=== PATIENT | male | born 1965 | race Two or more races ===

== ENCOUNTER 2018-11-16 18:18 | Inpatient (IN) | payer OTHER | END 2018-11-24 17:53 | disposition short-term general hospital (02) | LOC: JER 18:18 → J4S 11-18 18:51 → JERBED 20:27 → J7W 23:42 → J2W 11-17 20:58 ==

== ENCOUNTER 2018-11-24 17:23 | Inpatient (IN) | payer OTHER ==
[2018-11-24 18:02] VITALS: BMI 20.3
[2018-11-24] MEDS ORDERED: guaiFENesin 200 MG/10 ML 10 ML UNIT-DOSE CUPS PO PRN (18:49)
[2018-11-24] MEDS ORDERED: MAG HYDROX/AL HYDROX/SIMETH 30 ML UNIT-DOSE CUP PO PRN (18:49)
[2018-11-24] MEDS ORDERED: MENTHOL/PHENOL 1 EACH UD MM PRN (18:49)
[2018-11-24] MEDS ORDERED: P-EPHED 60MG/TRIPROLIDI 2.5MG TABLET PO PRN (18:49)
--- NOTE | 2018-11-24 18:49 | HP ---
CIWA Score - Admission Criteria OASAS Guidelines: Admission for Medically Managed Detox: Requires at least one of the followin. CIWA greater than 12 2. Seizures within the past 24 hours 3. Delirium tremens within the past 24 hours 4. Hallucinations within the past 24 hours 5. Acute intervention needed for co occurring medical disorder 6. Acute intervention needed for co occurring psychiatric disorder 7. Severe withdrawal that cannot be handled at a lower level of care (continued vomiting, continued diarrhea, abnormal vital signs) requiring intravenous medication and/or fluids 8. Admission ROS [facility] Chief Complaint: alcohol rehabilitation Allergies/Adverse Reactions: Allergies Allergy/AdvReac Type Severity Reaction Status Date / Time Penicillins Allergy Mild Rash Verified 11/24/18 17:45 History of Present Illness: Patient is 53 yo male with hx of alcohol dependence is here for alcohol rehabilitation after he was treated at [facility] 11/16/18 - 11/24/18 for alcohol withdrawal, chest pain, and acute abdominal pain, during the his stay had delirium tremens and was dx with abnormal Liver function test suspected liver cirrhosis and referred to out patient GI. Patient is linked to OTP: [facility] on methadone 100 mg last medicated 11/24/18 during his stay at [facility]. PMHX: Hyperammonemia, Pancytopenia seizure d/o (last seizure 11/10/18). Psych: schizophrenia, and insomnia. Denies SI/HI Exam Limitations: No Limitations - Ebola screening Have you traveled outside of the country in the last 21 days: No (N) Have you had contact with anyone from an Ebola affected area: No Do you have a fever: No - Review of Systems Constitutional: Chills, Diaphoresis, Changes in sleep EENT: reports: No Symptoms Reported Respiratory: reports: No Symptoms reported Cardiac: reports: No Symptoms Reported GI: reports: Other (abdominal pain x 3 weeks , but pain improving daily) Musculoskeletal: reports: No Symptoms Reported Integumentary: reports: No Symptoms Reported Neuro: reports: No Symptoms reported Endocrine: reports: No Symptoms Reported Hematology: reports: No Symptoms Reported Psychiatric: reports: No Sypmtoms Reported, Orientated x3, Anxious Other Systems: Reviewed and Negative Patient History - Patient Medical History Hx Anemia: Yes Hx Asthma: No Hx Chronic Obstructive Pulmonary Disease (COPD): No Hx Cancer: No Hx Cardiac Disorders: No Hx Congestive Heart Failure: No Hx Hypertension: No Hx Hypercholesterolemia: No Hx Pacemaker: No HX Cerebrovascular Accident: No Hx Seizures: Yes Hx Dementia: No Hx Diabetes: No Hx Gastrointestinal Disorders: No Hx Liver Disease: No Hx Genitourinary Disorders: No Hx Sexually Transmitted Disorders: No Hx Renal Disease (ESRD): No Hx Thyroid Disease: No Hx Human Immunodeficiency Virus (HIV): No Hx Hepatitis C: No Hx Depression: Yes Hx Suicide Attempt: No Hx Bipolar Disorder: No Hx Schizophrenia: Yes - Patient Surgical History Past Surgical History: Yes Hx Neurologic Surgery: No Hx Cataract Extraction: No Hx Cardiac Surgery: No Hx Lung Surgery: No Hx Breast Surgery: No Hx Breast Biopsy: No Hx Abdominal Surgery: Yes Hx Appendectomy: No Hx Cholecystectomy: No Hx Genitourinary Surgery: No Hx Section: No Hx Orthopedic Surgery: No Hx Hysterectomy: No - Smoking Cessation Smoking history: Former smoker Have you smoked in the past 12 months: No Aproximately how many cigarettes per day: 2 If you are a former smoker, when did you quit?: August 2018 Hx Chewing Tobacco Use: No Initiated information on smoking cessation: Yes 'Breaking Loose' booklet given: 11/24/18 - Substance & Tx. History Hx Alcohol Use: Yes Hx Substance Use: Yes Substance Use Type: Alcohol Hx Substance Use Treatment: Yes - Substances abused Alcohol Substance route: Oral Frequency: Daily Amount used: 1/5 bottle vodka, 9 cans of beer Age of first use: 22 Date of last use: 11/16/18 Family Disease History - Family Disease History Family Disease History: Other: Father (: MVA), Mother (: 70's: Brain tumor), Brother (1, healthy), Sister (1, healthy), Son (1, killed) Admission Physical Exam S - Vital Signs Vital Signs: Vital Signs - 24 hr 11/24/18 17:55 Temperature 97.2 F L Pulse Rate 74 Respiratory 16 Rate Blood Pressure 97/64 - Physical General Appearance: Yes: Appropriately Dressed, Thin, Irritable, Anxious HEENTM: Yes: EOMI, Hearing grossly Normal, Normal ENT Inspection, Normocephalic , Normal Voice, CONRADO, Pharynx Normal, Tm's normal, Other (poor dentition) Respiratory: Yes: Chest Non-Tender, Lungs Clear, Normal Breath Sounds, No Respiratory Distress, No Accessory Muscle Use Neck: Yes: Within Normal Limits Breast: Yes: Breast Exam Deferred Cardiology: Yes: Regular Rhythm, Regular Rate Abdominal: Yes: Normal Bowel Sounds, Non Tender, Soft, Protuberent Genitourinary: Yes: Within Normal Limits Back: Yes: Normal Inspection Musculoskeletal: Yes: full range of Motion, Gait Steady, Pelvis Stable Extremities: Yes: Normal Capillary Refill, Normal Inspection, Normal Range of Motion, Non-Tender Neurological: Yes: spray machine tender II-XII NML intact, Fully Oriented, Alert, Motor Strength 5/5, Normal Response, Depressed Affect Integumentary: Yes: Normal Color, Dry, Warm, Other (abrasion left knee (no infection)) Lymphatic: Yes: Within Normal Limits - Diagnostic (1) Alcohol dependence Current Visit: Yes Status: Acute (2) Hyperammonemia Current Visit: Yes Status: Acute (3) Opioid dependence on agonist therapy Current Visit: Yes Status: Chronic Comment: OTP: [facility] on 100 mg last dose 11/24/18 (4) Seizure disorder Current Visit: Yes Status: Chronic (5) History of delirium Current Visit: Yes Status: Acute (6) Pancytopenia Current Visit: Yes Status: Chronic Breathalyzer - Breathalyzer Breathalyzer: 0 Urine Drug Screen - Test Device Lot number: [id number] Expiration date: 08/16/20 - Control Is test valid?: Yes - Results Drug screen NEGATIVE: No Urine drug screen results: MTD-Methadone, BZO-Benzodiazepines Inpatient Rehab Admission - Rehab Decision to Admit Inpatient rehab admission?: Yes - Initial Determination Are CD services needed?: Yes Free of communicable disease: Yes Not in need of hospitalization: Yes - Rehab Admission Criteria Previous failed treatment: Yes Poor recovery environment: Yes Comorbidities: Yes Lacks judgement: Yes Patient is meeting Inpatient Rehab admission criteria:: Yes
[2018-11-24] MEDS: LACTULOSE 20 GM/30 ML UDC (FOR ORAL USE ONLY) PO SCH (21:25)
[2018-11-24] MEDS: GABAPENTIN 100 MG CAPSULE (FP) PO SCH (21:25)
[2018-11-24] MEDS: THIAMINE HCL 100 MG TABLET (FP) PO SCH (21:25)
[2018-11-24] MEDS: PHENYTOIN NA EXTENDED 100 MG CAPSULE (FP) PO SCH (21:25)
[2018-11-24] MEDS ORDERED: diphenhydrAMINE HCL 25 MG CAPSULE (FP) PO ONE (22:00)
[2018-11-24] MEDS ORDERED: MELATONIN 5 MG TABLETS PO PRN (22:00)
[2018-11-25] MEDS ORDERED: METHADONE HCL 10 MG TABLET ONE (05:23)
[2018-11-25] MEDS ORDERED: METHADONE HCL 40 MG DISPERSABLE TABLET ONE (05:23)
[2018-11-25] MEDS ORDERED: METHADONE HCL 40 MG DISPERSABLE TABLET PO SCH (06:00)
[2018-11-25] MEDS: METHADONE 80 MG, METHADONE 20 MG PO SCH (06:03)
[2018-11-25] MEDS: GABAPENTIN 100 MG CAPSULE (FP) PO SCH ×3 (06:03→21:15)
[2018-11-25] MEDS: PHENYTOIN NA EXTENDED 100 MG CAPSULE (FP) PO SCH ×3 (06:03→21:16)
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
[2018-11-25] MEDS: PRENATAL VITAMINS W/ FOLIC ACID TABLET (FP) PO SCH (09:56)
[2018-11-25] MEDS: LACTULOSE 20 GM/30 ML UDC (FOR ORAL USE ONLY) PO SCH ×3 (09:56→22:44)
[2018-11-25] MEDS: NADOLOL 20 MG TABLET (FP) PO SCH (10:48)
[2018-11-25] MEDS: risperiDONE 1 MG TABLET (FP) PO SCH ×2 (10:52→21:15)
[2018-11-25 12:35] LABS: ALBUMIN 3.4 g/dl (3.4-5.0); BILIRUBIN,TOTAL 1.5 mg/dL (0.2-1); BLOOD UREA NITROGEN 21.5 mg/dL (7-18); CALCIUM 8.6 mg/dL (8.5-10.1); CREATININE 0.8 mg/dL (0.55-1.3); POTASSIUM 4.2 mmol/L (3.5-5.1); TOT PROT 8.3 g/dl (6.4-8.2)
[2018-11-25 13:15] LABS: HEMATOCRIT 33.7 % (35.4-49); HEMOGLOBIN 11.2 GM/dL (11.7-16.9); MCH 34.6 pg (25.7-33.7); MCHC 33.2 g/dl (32.0-35.9); MEAN CELL VOLUME 104.3 fl (80-96); MEAN PLT VOLUME 8.8 fl (7.5-11.1); PLATELET COUNT 179 K/MM3 (134-434); RBC 3.23 M/mm3 (4.00-5.60); RDW 16.8 % (11.9-15.9); WHITE BLOOD COUNT 5.5 K/mm3 (4.0-10.0)
--- NOTE | 2018-11-25 14:00 | PN ---
[facility] Progress Note Note: Pt is a 53 y/o male with a hx of alcohol dependence admitted from [facility] to rehab on 11/24/18. Pt was referred to [facility] from [facility]. Pt was hospitalized at [facility] from 11/16/18 to 11/24/18 for alcohol withdrawals, acute abdomen and chest pain. Pt was reported with episode of delirium tremens and dx with abnormal Liver function test/suspected liver cirrhosis and was referred to GI clinic. Pt still c/o both sides abdominal pain especially on the right upper abdomen. Pt reports he has not urinated as much as he is drinking fluids and has not moved his bowel since today. Last urinated last night about 3 a.m here and [facility] Pt reports it happened 2-3 weeks ago and went to [facility] and was told "my kidneys are messing up ". Pt has a PMHX of Hyperammonemia, pancytopenia, seizure d/o(last episode was ). Psych:Schizophrenia and insomnia. Pt denies S/H/I. Vital Signs - 24 hr 11/24/18 11/24/18 11/25/18 17:55 19:43 00:30 Temperature 97.2 F L 98.2 F Pulse Rate 74 70 Respiratory 16 18 16 Rate Blood Pressure 97/64 112/79 11/25/18 11/25/18 11/25/18 03:30 07:14 09:47 Temperature 97.4 F L Pulse Rate 75 75 Respiratory 18 18 Rate Blood Pressure 115/70 89/57 L Laboratory Tests 11/25/18 11/25/18 11/25/18 08:45 08:45 08:45 WBC 5.5 RBC 3.23 L Hgb 11.2 L Hct 33.7 L MCV 104.3 H MCH 34.6 H MCHC 33.2 RDW 16.8 H Plt Count 179 D MPV 8.8 Sodium 137 Potassium 4.2 Chloride 106 Carbon Dioxide 25 Anion Gap 6 L BUN 21.5 H Creatinine 0.8 Est GFR (CKD-EPI)AfAm 116.56 Est GFR (CKD-EPI)NonAf 100.57 Random Glucose 81 Calcium 8.6 Total Bilirubin 1.5 H AST 69 H ALT 49 Alkaline Phosphatase 281 H Ammonia Total Protein 8.3 H Albumin 3.4 Phenytoin RPR Titer Nonreactive 11/25/18 11/25/18 08:45 08:45 WBC RBC Hgb Hct MCV MCH MCHC RDW Plt Count MPV Sodium Potassium Chloride Carbon Dioxide Anion Gap BUN Creatinine Est GFR (CKD-EPI)AfAm Est GFR (CKD-EPI)NonAf Random Glucose Calcium Total Bilirubin AST ALT Alkaline Phosphatase Ammonia 72.10 H Total Protein Albumin Phenytoin 4.7 L RPR Titer Alert o x 3 Heent:Normocephalic, eomi,charbel; sclera icteric Cardiac:s1 s2 rrr Lungs:cta,roseann. Abdomen:soft, sl. distended, tender to touch, generalized and especially right side. Skin:slightly jaundice Extermities:No edema or cyanosis. A:Abdominal pain c/o dysuria Plan:Spoke with Resident Dr. Clarke for further medical decision making. Meanwhile d/w pt will provide urinal for monitoring urine output. MOM for constipation or may increase lactulose to tid.
[2018-11-25] MEDS ORDERED: COLLOIDAL OATMEAL 1 BAR EACH TP PRN (14:25)
--- NOTE | 2018-11-25 16:28 | PN ---
[facility] Progress Note Note: Medicine consult: decreased urinary frequency 53 y/o M with PMH cirrhosis, hx seizure disorder (on phenytoin), who initially presented for alcohol detox. Was subsequently sent to [facility] for hyperammonemia, AMS, abdominal pain, chest pain. Was evaluated by GI and cardio while there. CTAP was done which revealed colonic distension, cirrhosis, nonspecific splenic lesion. Pt's encephalopathy was managed with lactulose, and diet was advanced gradually. Pt was also seen by cardio, trops (-) x 3, ECHO revealed Normal LV and RV size and fxn, mild TR, AR, tr MR. His alcohol detox was managed w/ ativan. Pt w/ hx DT's, was sent back to for rehab. Today pt c/o decreased urinary frequency and small void volume. This is new for pt. Endorses constipation during this time, as he had 1 BM 2 days ago. Currently also w/ RUQ, RLQ abdominal discomfort. Otherwise, denies REED, fever, chills, SOB, chest pain or pressure. Vitals 11/25/18 11/25/18 07:14 09:47 Temperature 97.4 F L Pulse Rate 75 Respiratory 18 Rate Blood Pressure 89/57 L Exam general: resting , in NAD heent: NCAT, with nare deviation pulm: cta b/l card: s1, s2, rrr. no r/m/g abd: +TTP RUQ RLQ. +hepatomegaly. normoactive bowel sounds LE: without edema Laboratory Tests 11/22/18 11/25/18 11/25/18 07:11 08:45 08:45 Sodium 137 Potassium 4.2 Chloride 106 BUN 21.5 H Creatinine 0.8 AST 69 H ALT 49 Ammonia RPR Titer Nonreactive Hep A IgM Ab Confirm Negative Hepatitis A Ab Total Positive H Hep Bs Antigen Negative Hep Bs Antibody Reactive Hep B Core Total Ab Negative Hep B Core IgM Ab Negative Hepatitis Be Antibody Negative Hepatitis Be Antigen Negative Hepatitis C Genotype Pending 11/25/18 08:45 ALT Ammonia 72.10 H RPR Titer 53 y/o M with PMH cirrhosis, hx seizure disorder (on phenytoin), who initially presented for alcohol detox. Pt currently in rehab from alcohol. Consulted for decreased urinary frequency and void volume. #Decreased urinary freq, void volume -likely 2/2 constipation. pt has not had adequate BM -will increase lactulose to 30mg PO q6h OLMAN ; titrate to 3-4 BMs daily -recommend bladder scan, straight cath if avail #hepatic encephalopathy - resolved -w/ increased ammonia, however without altered sensorium -have increased lactulose to 30mg PO q6h #cirrhosis likely 2/2 alcohol -expected to have low BP, given portal htn -c/t monitor; will need outpt GI f/u -will order hep C serology; genotype was ordered previously -c/w nadolol for variceal ppx #pancreatic lesion seen on CTAP -will need outpt f/u w GI #seizure d/o -c/w dilantin -sz precautions Kristie Clarke, MG PGY-3 Medicine team
[2018-11-25] MEDS: SELENIUM SULFIDE 2.5% LOTION 4 OZ. TP SCH (16:52)
[2018-11-25] MEDS: MINERAL OIL/PETROLAT/WATER TOPICAL CREAM 113 GM JAR TP SCH (16:53)
[2018-11-25] MEDS: THIAMINE HCL 100 MG TABLET (FP) PO SCH (21:16)
[2018-11-25] MEDS: MELATONIN 5 MG TABLETS PO PRN (21:16)
[2018-11-26] MEDS: LACTULOSE 20 GM/30 ML UDC (FOR ORAL USE ONLY) PO SCH ×4 (04:40→21:49)
[2018-11-26] MEDS ORDERED: METHADONE HCL 40 MG DISPERSABLE TABLET ONE (05:53)
[2018-11-26] MEDS ORDERED: METHADONE HCL 10 MG TABLET ONE (05:53)
[2018-11-26] MEDS: PHENYTOIN NA EXTENDED 100 MG CAPSULE (FP) PO SCH ×3 (06:14→21:24)
[2018-11-26] MEDS: GABAPENTIN 100 MG CAPSULE (FP) PO SCH ×3 (06:15→21:24)
[2018-11-26] MEDS: METHADONE 80 MG, METHADONE 20 MG PO SCH (06:35)
[2018-11-26] MEDS: PRENATAL VITAMINS W/ FOLIC ACID TABLET (FP) PO SCH (11:07)
[2018-11-26] MEDS: NADOLOL 20 MG TABLET (FP) PO SCH (11:10)
[2018-11-26] MEDS: risperiDONE 1 MG TABLET (FP) PO SCH ×2 (11:11→21:24)
[2018-11-26] MEDS: MINERAL OIL/PETROLAT/WATER TOPICAL CREAM 113 GM JAR TP SCH (11:11)
[2018-11-26] MEDS: SELENIUM SULFIDE 2.5% LOTION 4 OZ. TP SCH (11:13)
[2018-11-26 17:54] LABS: EPI CELLS 4.6 /HPF (0-5/HPF); HYALINE CASTS 16 /lpf (0-8); PH,URINE 5.5 (5.0-8.0); URINE APPEARANCE CLEAR; URINE BILIRUBIN 1+ (NEGATIVE); URINE COLOR DK YELLOW; URINE GLUCOSE (UA) NEGATIVE (NEGATIVE); URINE KETONE TRACE (NEGATIVE); URINE LEUK ESTERASE 1+ (NEGATIVE); URINE NITRITE NEGATIVE (NEGATIVE); URINE PROTEIN NEGATIVE (NEGATIVE); URINE RBC 2 /hpf (0-4); URINE UROBILINOGEN 0.2 mg/dL (0.2-1.0); URINE WBC 22 /hpf (0-5)
[2018-11-26] MEDS: MELATONIN 5 MG TABLETS PO PRN (21:24)
[2018-11-26] MEDS: THIAMINE HCL 100 MG TABLET (FP) PO SCH (21:24)
[2018-11-27 03:47] LABS: URINE CRYSTALS CA OXALATE /hpf
[2018-11-27] MEDS: LACTULOSE 20 GM/30 ML UDC (FOR ORAL USE ONLY) PO SCH ×4 (04:04→22:48)
[2018-11-27] MEDS ORDERED: METHADONE HCL 10 MG TABLET ONE (05:41)
[2018-11-27] MEDS ORDERED: METHADONE HCL 40 MG DISPERSABLE TABLET ONE (05:41)
[2018-11-27] MEDS: GABAPENTIN 100 MG CAPSULE (FP) PO SCH ×3 (06:08→21:18)
[2018-11-27] MEDS: PHENYTOIN NA EXTENDED 100 MG CAPSULE (FP) PO SCH ×3 (06:08→21:18)
[2018-11-27] MEDS: METHADONE 80 MG, METHADONE 20 MG PO SCH (06:08)
[2018-11-27] MEDS: MINERAL OIL/PETROLAT/WATER TOPICAL CREAM 113 GM JAR TP SCH (10:10)
[2018-11-27] MEDS: risperiDONE 1 MG TABLET (FP) PO SCH ×2 (10:10→21:18)
[2018-11-27] MEDS: PRENATAL VITAMINS W/ FOLIC ACID TABLET (FP) PO SCH (10:10)
[2018-11-27] MEDS: NADOLOL 20 MG TABLET (FP) PO SCH (10:10)
[2018-11-27] MEDS: SELENIUM SULFIDE 2.5% LOTION 4 OZ. TP SCH (10:13)
[2018-11-27] MEDS: THIAMINE HCL 100 MG TABLET (FP) PO SCH (21:18)
[2018-11-27] MEDS: MELATONIN 5 MG TABLETS PO PRN (21:39)
[2018-11-28] MEDS ORDERED: METHADONE HCL 10 MG TABLET ONE (02:51)
[2018-11-28] MEDS ORDERED: METHADONE HCL 40 MG DISPERSABLE TABLET ONE (02:51)
[2018-11-28] MEDS: METHADONE 80 MG, METHADONE 20 MG PO SCH (06:02)
[2018-11-28] MEDS: PHENYTOIN NA EXTENDED 100 MG CAPSULE (FP) PO SCH ×3 (06:03→21:25)
[2018-11-28] MEDS: GABAPENTIN 100 MG CAPSULE (FP) PO SCH ×3 (06:03→21:25)
[2018-11-28] MEDS: LACTULOSE 20 GM/30 ML UDC (FOR ORAL USE ONLY) PO SCH ×4 (06:04→22:01)
--- NOTE | 2018-11-28 09:19 | PN ---
Teaching Attending Note Name of Resident: Kristie Clarke ATTENDING PHYSICIAN STATEMENT I saw and evaluated the patient. I reviewed the resident's note and discussed the case with the resident. I agree with the resident's findings and plan as documented. SUBJECTIVE: Patient was seen for elevated LFT's No complaints OBJECTIVE: Patient was advised of LFT's consistent with alcohol use ASSESSMENT AND PLAN: Other causes to be identified and patient must follow up with GI upon discharge.
[2018-11-28] MEDS: PRENATAL VITAMINS W/ FOLIC ACID TABLET (FP) PO SCH (10:22)
[2018-11-28] MEDS: NADOLOL 20 MG TABLET (FP) PO SCH (10:22)
[2018-11-28] MEDS: risperiDONE 1 MG TABLET (FP) PO SCH ×2 (10:22→21:25)
[2018-11-28] MEDS: SELENIUM SULFIDE 2.5% LOTION 4 OZ. TP SCH (10:23)
[2018-11-28] MEDS: MINERAL OIL/PETROLAT/WATER TOPICAL CREAM 113 GM JAR TP SCH (10:23)
[2018-11-28] MEDS: THIAMINE HCL 100 MG TABLET (FP) PO SCH (21:25)
[2018-11-28] MEDS: MELATONIN 5 MG TABLETS PO PRN (21:26)
[2018-11-29] MEDS ORDERED: METHADONE HCL 10 MG TABLET ONE (05:40)
[2018-11-29] MEDS ORDERED: METHADONE HCL 40 MG DISPERSABLE TABLET ONE (05:41)
[2018-11-29] MEDS: METHADONE 80 MG, METHADONE 20 MG PO SCH (06:04)
[2018-11-29] MEDS: GABAPENTIN 100 MG CAPSULE (FP) PO SCH ×3 (07:08→21:42)
[2018-11-29] MEDS: PHENYTOIN NA EXTENDED 100 MG CAPSULE (FP) PO SCH ×3 (07:09→21:42)
[2018-11-29] MEDS: LACTULOSE 20 GM/30 ML UDC (FOR ORAL USE ONLY) PO SCH ×4 (07:09→21:42)
[2018-11-29] MEDS: NADOLOL 20 MG TABLET (FP) PO SCH (10:07)
[2018-11-29] MEDS: SELENIUM SULFIDE 2.5% LOTION 4 OZ. TP SCH (10:07)
[2018-11-29] MEDS: risperiDONE 1 MG TABLET (FP) PO SCH ×2 (10:07→21:41)
[2018-11-29] MEDS: PRENATAL VITAMINS W/ FOLIC ACID TABLET (FP) PO SCH (10:07)
[2018-11-29] MEDS: MINERAL OIL/PETROLAT/WATER TOPICAL CREAM 113 GM JAR TP SCH (10:07)
[2018-11-29] MEDS: MELATONIN 5 MG TABLETS PO PRN (21:42)
[2018-11-29] MEDS: THIAMINE HCL 100 MG TABLET (FP) PO SCH (21:42)
[2018-11-29 23:49] LABS: URINE APPEARANCE CLEAR; URINE BILIRUBIN NEGATIVE (NEGATIVE); URINE COLOR YELLOW; URINE GLUCOSE (UA) NEGATIVE (NEGATIVE); URINE KETONE NEGATIVE (NEGATIVE); URINE LEUK ESTERASE NEGATIVE (NEGATIVE); URINE NITRITE NEGATIVE (NEGATIVE); URINE PROTEIN NEGATIVE (NEGATIVE); URINE UROBILINOGEN 0.2 mg/dL (0.2-1.0)
[2018-11-30] MEDS ORDERED: METHADONE HCL 10 MG TABLET ONE (05:10)
[2018-11-30] MEDS ORDERED: METHADONE HCL 40 MG DISPERSABLE TABLET ONE (05:10)
[2018-11-30] MEDS: METHADONE 80 MG, METHADONE 20 MG PO SCH (05:36)
[2018-11-30] MEDS: LACTULOSE 20 GM/30 ML UDC (FOR ORAL USE ONLY) PO SCH ×3 (05:36→21:20)
[2018-11-30] MEDS: PHENYTOIN NA EXTENDED 100 MG CAPSULE (FP) PO SCH ×3 (06:58→21:20)
[2018-11-30] MEDS: GABAPENTIN 100 MG CAPSULE (FP) PO SCH ×3 (06:58→21:20)
[2018-11-30] MEDS: NADOLOL 20 MG TABLET (FP) PO SCH (10:01)
[2018-11-30] MEDS: risperiDONE 1 MG TABLET (FP) PO SCH ×2 (10:01→21:19)
[2018-11-30] MEDS: MINERAL OIL/PETROLAT/WATER TOPICAL CREAM 113 GM JAR TP SCH (10:02)
[2018-11-30] MEDS: SELENIUM SULFIDE 2.5% LOTION 4 OZ. TP SCH (10:02)
[2018-11-30] MEDS: PRENATAL VITAMINS W/ FOLIC ACID TABLET (FP) PO SCH (10:02)
[2018-11-30 12:32] LABS: ALBUMIN 3.1 g/dl (3.4-5.0); BILIRUBIN,TOTAL 0.7 mg/dL (0.2-1); BLOOD UREA NITROGEN 16.3 mg/dL (7-18); CALCIUM 8.4 mg/dL (8.5-10.1); CREATININE 0.8 mg/dL (0.55-1.3); POTASSIUM 4.1 mmol/L (3.5-5.1); TOT PROT 7.2 g/dl (6.4-8.2)
[2018-11-30 12:42] LABS: HEMATOCRIT 30.6 % (35.4-49); HEMOGLOBIN 10.2 GM/dL (11.7-16.9); MCH 34.5 pg (25.7-33.7); MCHC 33.2 g/dl (32.0-35.9); MEAN CELL VOLUME 103.9 fl (80-96); MEAN PLT VOLUME 9.1 fl (7.5-11.1); PLATELET COUNT 186 K/MM3 (134-434); RBC 2.94 M/mm3 (4.00-5.60); RDW 16.6 % (11.9-15.9); WHITE BLOOD COUNT 5.8 K/mm3 (4.0-10.0)
--- NOTE | 2018-11-30 12:54 | PN ---
[facility] Progress Note Note: Repeat Lab Review: Pt is alert o x 3 oob ambulating with steady gait. Vital Signs - 24 hr 11/30/18 11/30/18 11/30/18 00:30 03:30 06:30 Temperature 98.3 F Pulse Rate 76 Respiratory 20 18 18 Rate Blood Pressure 127/67 Laboratory Tests 11/25/18 11/25/18 11/25/18 08:45 08:45 08:45 WBC 5.5 RBC 3.23 L Hgb 11.2 L Hct 33.7 L MCV 104.3 H MCH 34.6 H MCHC 33.2 RDW 16.8 H Plt Count 179 D MPV 8.8 Sodium 137 Potassium 4.2 Chloride 106 Carbon Dioxide 25 Anion Gap 6 L BUN 21.5 H Creatinine 0.8 Est GFR (CKD-EPI)AfAm 116.56 Est GFR (CKD-EPI)NonAf 100.57 Random Glucose 81 Calcium 8.6 Total Bilirubin 1.5 H AST 69 H ALT 49 Alkaline Phosphatase 281 H Ammonia Total Protein 8.3 H Albumin 3.4 Urine Color Urine Appearance Urine pH Ur Specific [place] Urine Protein Urine Glucose (UA) Urine Ketones Urine Blood Urine Nitrite Urine Bilirubin Urine Urobilinogen Ur Leukocyte Esterase Urine WBC (Auto) Urine RBC (Auto) Urine Casts (Auto) U Epithel Cells (Auto) Urine Crystals (Auto) Urine Bacteria (Auto) Phenytoin RPR Titer Nonreactive 11/25/18 11/25/18 11/26/18 08:45 08:45 Unknown WBC RBC Hgb Hct MCV MCH MCHC RDW Plt Count MPV Sodium Potassium Chloride Carbon Dioxide Anion Gap BUN Creatinine Est GFR (CKD-EPI)AfAm Est GFR (CKD-EPI)NonAf Random Glucose Calcium Total Bilirubin AST ALT Alkaline Phosphatase Ammonia 72.10 H Total Protein Albumin Urine Color Dk yellow Urine Appearance Clear Urine pH 5.5 Ur Specific [place] 1.019 Urine Protein Negative Urine Glucose (UA) Negative Urine Ketones Trace H Urine Blood Negative Urine Nitrite Negative Urine Bilirubin 1+ H Urine Urobilinogen 0.2 Ur Leukocyte Esterase 1+ H Urine WBC (Auto) 22 Urine RBC (Auto) 2 Urine Casts (Auto) 16 U Epithel Cells (Auto) 4.6 Urine Crystals (Auto) Ca oxalate Urine Bacteria (Auto) 11.0 Phenytoin 4.7 L RPR Titer 11/29/18 11/30/18 11/30/18 14:40 08:35 08:35 WBC RBC Hgb Hct MCV MCH MCHC RDW Plt Count MPV Sodium 140 Potassium 4.1 Chloride 110 H Carbon Dioxide 24 Anion Gap 6 L BUN 16.3 Creatinine 0.8 Est GFR (CKD-EPI)AfAm 116.56 Est GFR (CKD-EPI)NonAf 100.57 Random Glucose 126 H Calcium 8.4 L Total Bilirubin 0.7 AST 58 H ALT 56 Alkaline Phosphatase 232 H Ammonia 73.20 H Total Protein 7.2 Albumin 3.1 L Urine Color Yellow Urine Appearance Clear Urine pH 6.0 Ur Specific [place] 1.018 Urine Protein Negative Urine Glucose (UA) Negative Urine Ketones Negative Urine Blood Negative Urine Nitrite Negative Urine Bilirubin Negative Urine Urobilinogen 0.2 Ur Leukocyte Esterase Negative Urine WBC (Auto) Urine RBC (Auto) Urine Casts (Auto) U Epithel Cells (Auto) Urine Crystals (Auto) Urine Bacteria (Auto) Phenytoin RPR Titer 11/30/18 08:35 WBC RBC Hgb Hct MCV MCH MCHC RDW Plt Count MPV Sodium Potassium Chloride Carbon Dioxide Anion Gap BUN Creatinine Est GFR (CKD-EPI)AfAm Est GFR (CKD-EPI)NonAf Random Glucose Calcium Total Bilirubin AST ALT Alkaline Phosphatase Ammonia Total Protein Albumin Urine Color Urine Appearance Urine pH Ur Specific [place] Urine Protein Urine Glucose (UA) Urine Ketones Urine Blood Urine Nitrite Urine Bilirubin Urine Urobilinogen Ur Leukocyte Esterase Urine WBC (Auto) Urine RBC (Auto) Urine Casts (Auto) U Epithel Cells (Auto) Urine Crystals (Auto) Urine Bacteria (Auto) Phenytoin 3.3 L RPR Titer Dilantin level 3.3 today, decreased from 4.7 on 11/25/18. asymptomatic A/P: Hx Seizures Give Dilantin 200 mg po x1 now.
[2018-11-30] MEDS ORDERED: PHENYTOIN NA EXTENDED 100 MG CAPSULE (FP) PO ONE (13:15)
--- NOTE | 2018-11-30 13:42 | PN ---
[facility] Progress Note Note: Patient is not responding to Melatonin 10 mg/hs. Will switch to Belsomra 10 mg/ hs prn for insomnia
[2018-11-30] MEDS: THIAMINE HCL 100 MG TABLET (FP) PO SCH (21:20)
[2018-11-30] MEDS ORDERED: SUVOREXANT 10 MG TABLET PO PRN (22:00)
[2018-12-01] MEDS ORDERED: METHADONE HCL 10 MG TABLET ONE (05:41)
[2018-12-01] MEDS ORDERED: METHADONE HCL 40 MG DISPERSABLE TABLET ONE (05:41)
[2018-12-01] MEDS ORDERED: METHADONE HCL 10 MG TABLET PO SCH (06:00)
[2018-12-01] MEDS: METHADONE 80 MG, METHADONE 20 MG PO SCH (06:09)
[2018-12-01] MEDS: PHENYTOIN NA EXTENDED 100 MG CAPSULE (FP) PO SCH ×3 (06:58→21:18)
[2018-12-01] MEDS: LACTULOSE 20 GM/30 ML UDC (FOR ORAL USE ONLY) PO SCH ×3 (06:58→21:18)
[2018-12-01] MEDS: GABAPENTIN 100 MG CAPSULE (FP) PO SCH ×3 (07:58→21:18)
[2018-12-01] MEDS: SELENIUM SULFIDE 2.5% LOTION 4 OZ. TP SCH (10:54)
[2018-12-01] MEDS: MINERAL OIL/PETROLAT/WATER TOPICAL CREAM 113 GM JAR TP SCH (10:54)
[2018-12-01] MEDS: risperiDONE 1 MG TABLET (FP) PO SCH ×2 (10:54→21:18)
[2018-12-01] MEDS: PRENATAL VITAMINS W/ FOLIC ACID TABLET (FP) PO SCH (10:54)
[2018-12-01] MEDS: NADOLOL 20 MG TABLET (FP) PO SCH (10:54)
--- NOTE | 2018-12-01 13:49 | PN ---
S Progress Note Note: Patient continues to complain sleeping poorly despita taking Belsomra 10 mg/hs last night. Requests that doage of medication be raised. Belsomra 15 mg/hs is now ordered for patient
[2018-12-01] MEDS: THIAMINE HCL 100 MG TABLET (FP) PO SCH (21:18)
[2018-12-01] MEDS: SUVOREXANT 15 MG TABLET PO PRN (21:19)
[2018-12-02] MEDS ORDERED: METHADONE HCL 40 MG DISPERSABLE TABLET ONE (05:56)
[2018-12-02] MEDS ORDERED: METHADONE HCL 10 MG TABLET ONE (05:56)
[2018-12-02] MEDS: METHADONE 80 MG, METHADONE 20 MG PO SCH (06:10)
[2018-12-02] MEDS: GABAPENTIN 100 MG CAPSULE (FP) PO SCH ×3 (06:53→21:16)
[2018-12-02] MEDS: PHENYTOIN NA EXTENDED 100 MG CAPSULE (FP) PO SCH ×3 (06:53→21:16)
[2018-12-02] MEDS: LACTULOSE 20 GM/30 ML UDC (FOR ORAL USE ONLY) PO SCH ×3 (06:53→21:16)
[2018-12-02] MEDS: risperiDONE 1 MG TABLET (FP) PO SCH ×2 (10:08→21:16)
[2018-12-02] MEDS: PRENATAL VITAMINS W/ FOLIC ACID TABLET (FP) PO SCH (10:08)
[2018-12-02] MEDS: MINERAL OIL/PETROLAT/WATER TOPICAL CREAM 113 GM JAR TP SCH (10:08)
[2018-12-02] MEDS: NADOLOL 20 MG TABLET (FP) PO SCH (10:10)
[2018-12-02] MEDS: THIAMINE HCL 100 MG TABLET (FP) PO SCH (21:16)
[2018-12-02] MEDS: SUVOREXANT 15 MG TABLET PO PRN (21:17)
[2018-12-03] MEDS ORDERED: METHADONE HCL 10 MG TABLET ONE (06:06)
[2018-12-03] MEDS: METHADONE 80 MG, METHADONE 20 MG PO SCH (06:07)
[2018-12-03] MEDS ORDERED: METHADONE HCL 40 MG DISPERSABLE TABLET ONE (06:07)
[2018-12-03] MEDS: LACTULOSE 20 GM/30 ML UDC (FOR ORAL USE ONLY) PO SCH ×3 (07:37→21:27)
[2018-12-03] MEDS: PHENYTOIN NA EXTENDED 100 MG CAPSULE (FP) PO SCH ×3 (07:37→21:25)
[2018-12-03] MEDS: GABAPENTIN 100 MG CAPSULE (FP) PO SCH ×3 (07:37→21:26)
[2018-12-03] MEDS: NADOLOL 20 MG TABLET (FP) PO SCH (09:52)
[2018-12-03] MEDS: PRENATAL VITAMINS W/ FOLIC ACID TABLET (FP) PO SCH (09:52)
[2018-12-03] MEDS: risperiDONE 1 MG TABLET (FP) PO SCH ×2 (09:52→21:26)
[2018-12-03] MEDS: MINERAL OIL/PETROLAT/WATER TOPICAL CREAM 113 GM JAR TP SCH (11:04)
[2018-12-03] MEDS: THIAMINE HCL 100 MG TABLET (FP) PO SCH (21:26)
[2018-12-03] MEDS: SUVOREXANT 15 MG TABLET PO PRN (21:28)
[2018-12-04] MEDS ORDERED: METHADONE HCL 10 MG TABLET ONE (03:52)
[2018-12-04] MEDS ORDERED: METHADONE HCL 40 MG DISPERSABLE TABLET ONE (03:52)
[2018-12-04] MEDS: IBUPROFEN 400 MG TABLET (FP) PO PRN ×3 (05:52→21:42)
[2018-12-04] MEDS: METHADONE 80 MG, METHADONE 20 MG PO SCH (05:53)
[2018-12-04] MEDS: GABAPENTIN 100 MG CAPSULE (FP) PO SCH ×3 (05:54→21:43)
[2018-12-04] MEDS: PHENYTOIN NA EXTENDED 100 MG CAPSULE (FP) PO SCH ×3 (05:54→22:54)
[2018-12-04] MEDS: LACTULOSE 20 GM/30 ML UDC (FOR ORAL USE ONLY) PO SCH ×3 (05:55→21:43)
[2018-12-04] MEDS: PRENATAL VITAMINS W/ FOLIC ACID TABLET (FP) PO SCH (10:05)
[2018-12-04] MEDS: risperiDONE 1 MG TABLET (FP) PO SCH ×2 (10:05→21:43)
[2018-12-04] MEDS: NADOLOL 20 MG TABLET (FP) PO SCH (10:05)
--- NOTE | 2018-12-04 11:10 | PN ---
S Progress Note Note: Patient continue to report sleeping poorly despite taking Belsomra 15 mg/hs. Peter increase Belsomra dosage to 20 mg/hs
[2018-12-04] MEDS: MINERAL OIL/PETROLAT/WATER TOPICAL CREAM 113 GM JAR TP SCH (11:35)
[2018-12-04] MEDS: THIAMINE HCL 100 MG TABLET (FP) PO SCH (21:43)
[2018-12-04] MEDS: SUVOREXANT 10 MG TABLET PO PRN (21:49)
[2018-12-05] MEDS ORDERED: METHADONE HCL 10 MG TABLET ONE (05:37)
[2018-12-05] MEDS ORDERED: METHADONE HCL 40 MG DISPERSABLE TABLET ONE (05:37)
[2018-12-05] MEDS: METHADONE 80 MG, METHADONE 20 MG PO SCH (05:55)
[2018-12-05] MEDS: IBUPROFEN 400 MG TABLET (FP) PO PRN ×3 (05:58→21:23)
[2018-12-05] MEDS: GABAPENTIN 100 MG CAPSULE (FP) PO SCH ×3 (06:19→21:21)
[2018-12-05] MEDS: LACTULOSE 20 GM/30 ML UDC (FOR ORAL USE ONLY) PO SCH ×3 (06:19→21:21)
[2018-12-05] MEDS: PHENYTOIN NA EXTENDED 100 MG CAPSULE (FP) PO SCH ×3 (06:19→21:21)
[2018-12-05] MEDS: risperiDONE 1 MG TABLET (FP) PO SCH ×2 (09:57→21:20)
[2018-12-05] MEDS: NADOLOL 20 MG TABLET (FP) PO SCH (09:57)
[2018-12-05] MEDS: PRENATAL VITAMINS W/ FOLIC ACID TABLET (FP) PO SCH (09:57)
[2018-12-05] MEDS: MINERAL OIL/PETROLAT/WATER TOPICAL CREAM 113 GM JAR TP SCH (09:58)
[2018-12-05] MEDS: THIAMINE HCL 100 MG TABLET (FP) PO SCH (21:21)
[2018-12-05] MEDS: SUVOREXANT 10 MG TABLET PO PRN (21:22)
[2018-12-06] MEDS ORDERED: METHADONE HCL 10 MG TABLET ONE (03:49)
[2018-12-06] MEDS ORDERED: METHADONE HCL 40 MG DISPERSABLE TABLET ONE (03:49)
[2018-12-06] MEDS: GABAPENTIN 100 MG CAPSULE (FP) PO SCH ×3 (06:04→21:15)
[2018-12-06] MEDS: PHENYTOIN NA EXTENDED 100 MG CAPSULE (FP) PO SCH ×3 (06:04→21:15)
[2018-12-06] MEDS: LACTULOSE 20 GM/30 ML UDC (FOR ORAL USE ONLY) PO SCH ×3 (06:04→21:15)
[2018-12-06] MEDS: METHADONE 80 MG, METHADONE 20 MG PO SCH (06:04)
[2018-12-06] MEDS: IBUPROFEN 400 MG TABLET (FP) PO PRN ×3 (06:39→21:17)
[2018-12-06] MEDS: NADOLOL 20 MG TABLET (FP) PO SCH (10:17)
[2018-12-06] MEDS: risperiDONE 1 MG TABLET (FP) PO SCH ×2 (10:17→21:15)
[2018-12-06] MEDS: MINERAL OIL/PETROLAT/WATER TOPICAL CREAM 113 GM JAR TP SCH (10:18)
[2018-12-06] MEDS: PRENATAL VITAMINS W/ FOLIC ACID TABLET (FP) PO SCH (10:18)
[2018-12-06] MEDS: THIAMINE HCL 100 MG TABLET (FP) PO SCH (21:15)
[2018-12-06] MEDS: SUVOREXANT 10 MG TABLET PO PRN (21:16)
[2018-12-07] MEDS ORDERED: METHADONE HCL 10 MG TABLET PO SCH (06:00)
[2018-12-07] MEDS ORDERED: METHADONE HCL 10 MG TABLET ONE (06:04)
[2018-12-07] MEDS: GABAPENTIN 100 MG CAPSULE (FP) PO SCH ×3 (06:05→21:17)
[2018-12-07] MEDS ORDERED: METHADONE HCL 40 MG DISPERSABLE TABLET ONE (06:05)
[2018-12-07] MEDS: IBUPROFEN 400 MG TABLET (FP) PO PRN ×3 (06:05→21:16)
[2018-12-07] MEDS: LACTULOSE 20 GM/30 ML UDC (FOR ORAL USE ONLY) PO SCH ×3 (06:05→21:17)
[2018-12-07] MEDS: PHENYTOIN NA EXTENDED 100 MG CAPSULE (FP) PO SCH ×3 (06:05→21:17)
[2018-12-07] MEDS: METHADONE 80 MG, METHADONE 20 MG PO SCH (06:05)
[2018-12-07] MEDS: MINERAL OIL/PETROLAT/WATER TOPICAL CREAM 113 GM JAR TP SCH (10:02)
[2018-12-07] MEDS: risperiDONE 1 MG TABLET (FP) PO SCH ×2 (10:02→21:17)
[2018-12-07] MEDS: NADOLOL 20 MG TABLET (FP) PO SCH (10:02)
[2018-12-07] MEDS: PRENATAL VITAMINS W/ FOLIC ACID TABLET (FP) PO SCH (10:02)
--- NOTE | 2018-12-07 11:23 | PN ---
S Progress Note Note: Patient is scheduled for discharge tomorrow. Scripts for 30 days supply of Risperdal 1 mg/bid will be electronically transmitted to [facility] at [address] [place], [place] [id number]
--- NOTE | 2018-12-07 11:43 | DS ---
[facility] Detox Discharge Summary Admission Date: 11/24/18 Discharge Date: 12/08/18 - History Present History: Alcohol Dependence Additional Comments: pt is scheduled for discharge tomorrow. Pt participated in rehab activities. - Physical Exam Results Vital Signs: Vital Signs Temperature 98.2 F 12/07/18 07:01 Pulse Rate 69 12/07/18 07:01 Respiratory Rate 18 12/07/18 07:01 Blood Pressure 115/73 12/07/18 07:01 O2 Sat by Pulse Oximetry (%) Pertinent Admission Physical Exam Findings: Laboratory Tests 11/25/18 11/25/18 11/25/18 08:45 08:45 08:45 WBC 5.5 RBC 3.23 L Hgb 11.2 L Hct 33.7 L MCV 104.3 H MCH 34.6 H MCHC 33.2 RDW 16.8 H Plt Count 179 D MPV 8.8 Sodium 137 Potassium 4.2 Chloride 106 Carbon Dioxide 25 Anion Gap 6 L BUN 21.5 H Creatinine 0.8 Est GFR (CKD-EPI)AfAm 116.56 Est GFR (CKD-EPI)NonAf 100.57 Random Glucose 81 Calcium 8.6 Total Bilirubin 1.5 H AST 69 H ALT 49 Alkaline Phosphatase 281 H Ammonia Total Protein 8.3 H Albumin 3.4 Urine Color Urine Appearance Urine pH Ur Specific [place] Urine Protein Urine Glucose (UA) Urine Ketones Urine Blood Urine Nitrite Urine Bilirubin Urine Urobilinogen Ur Leukocyte Esterase Urine WBC (Auto) Urine RBC (Auto) Urine Casts (Auto) U Epithel Cells (Auto) Urine Crystals (Auto) Urine Bacteria (Auto) Phenytoin RPR Titer Nonreactive 11/25/18 11/25/18 11/26/18 08:45 08:45 Unknown WBC RBC Hgb Hct MCV MCH MCHC RDW Plt Count MPV Sodium Potassium Chloride Carbon Dioxide Anion Gap BUN Creatinine Est GFR (CKD-EPI)AfAm Est GFR (CKD-EPI)NonAf Random Glucose Calcium Total Bilirubin AST ALT Alkaline Phosphatase Ammonia 72.10 H Total Protein Albumin Urine Color Dk yellow Urine Appearance Clear Urine pH 5.5 Ur Specific [place] 1.019 Urine Protein Negative Urine Glucose (UA) Negative Urine Ketones Trace H Urine Blood Negative Urine Nitrite Negative Urine Bilirubin 1+ H Urine Urobilinogen 0.2 Ur Leukocyte Esterase 1+ H Urine WBC (Auto) 22 Urine RBC (Auto) 2 Urine Casts (Auto) 16 U Epithel Cells (Auto) 4.6 Urine Crystals (Auto) Ca oxalate Urine Bacteria (Auto) 11.0 Phenytoin 4.7 L RPR Titer 11/29/18 11/30/18 11/30/18 14:40 08:35 08:35 WBC 5.8 RBC 2.94 L Hgb 10.2 L Hct 30.6 L MCV 103.9 H MCH 34.5 H MCHC 33.2 RDW 16.6 H Plt Count 186 MPV 9.1 Sodium 140 Potassium 4.1 Chloride 110 H Carbon Dioxide 24 Anion Gap 6 L BUN 16.3 Creatinine 0.8 Est GFR (CKD-EPI)AfAm 116.56 Est GFR (CKD-EPI)NonAf 100.57 Random Glucose 126 H Calcium 8.4 L Total Bilirubin 0.7 AST 58 H ALT 56 Alkaline Phosphatase 232 H Ammonia Total Protein 7.2 Albumin 3.1 L Urine Color Yellow Urine Appearance Clear Urine pH 6.0 Ur Specific [place] 1.018 Urine Protein Negative Urine Glucose (UA) Negative Urine Ketones Negative Urine Blood Negative Urine Nitrite Negative Urine Bilirubin Negative Urine Urobilinogen 0.2 Ur Leukocyte Esterase Negative Urine WBC (Auto) Urine RBC (Auto) Urine Casts (Auto) U Epithel Cells (Auto) Urine Crystals (Auto) Urine Bacteria (Auto) Phenytoin RPR Titer 11/30/18 11/30/18 12/07/18 08:35 08:35 08:50 WBC RBC Hgb Hct MCV MCH MCHC RDW Plt Count MPV Sodium Potassium Chloride Carbon Dioxide Anion Gap BUN Creatinine Est GFR (CKD-EPI)AfAm Est GFR (CKD-EPI)NonAf Random Glucose Calcium Total Bilirubin AST ALT Alkaline Phosphatase Ammonia 73.20 H 63.90 H Total Protein Albumin Urine Color Urine Appearance Urine pH Ur Specific [place] Urine Protein Urine Glucose (UA) Urine Ketones Urine Blood Urine Nitrite Urine Bilirubin Urine Urobilinogen Ur Leukocyte Esterase Urine WBC (Auto) Urine RBC (Auto) Urine Casts (Auto) U Epithel Cells (Auto) Urine Crystals (Auto) Urine Bacteria (Auto) Phenytoin 3.3 L RPR Titer abnormal labs Hyperammoniaema Copies of labs given to patient in discharge package to follow up with pcp for medical management. - Treatment Hospital Course: Discharged Condition Good - Medication Discharge Medications: Ambulatory Orders Phenytoin Na Extended [Dilantin -] 100 mg PO TID 11/16/18 Methadone [Dolophine -] 100 mg PO DAILY 11/17/18 Lactulose (Oral Use) [Cephulac -] 20 gm PO BID #100 udc 11/24/18 Nadolol [Corgard -] 20 mg PO DAILY #30 tablet 11/24/18 Thiamine HCl [B-1] 100 mg PO DAILY 11/24/18 Risperidone [Risperdal -] 1 mg PO BID #60 tablet 12/07/18 - AMA Did Patient Leave Against Medical Advice: No
--- NOTE | 2018-12-07 11:50 | DS ---
[facility] Rehab Discharge Summary - [facility] Rehab Discharge Summary Admission Date: 11/24/18 Discharge Date: 12/08/18 - History Present History: Alcohol dependence, MMTP ([facility] MMTP) Additional Comments: Pt completing rehab and scheduled for discharge tomorrow. pt reports primary care with [facility] [place], [place] with Dr. Mendes. Pertinent Past History: seizures pancytopenia abnormal liver function - Discharge Physical Exam Vital Signs: Vital Signs Temperature 98.2 F 12/07/18 07:01 Pulse Rate 69 12/07/18 07:01 Respiratory Rate 18 12/07/18 07:01 Blood Pressure 115/73 12/07/18 07:01 O2 Sat by Pulse Oximetry (%) Pertinent Admission Physical Exam Findings: Vital Signs - 24 hr 12/07/18 12/07/18 12/07/18 00:30 03:30 07:01 Temperature 98.2 F Pulse Rate 69 Respiratory 18 18 18 Rate Blood Pressure 115/73 Laboratory Tests 11/25/18 11/25/18 11/25/18 08:45 08:45 08:45 WBC 5.5 RBC 3.23 L Hgb 11.2 L Hct 33.7 L MCV 104.3 H MCH 34.6 H MCHC 33.2 RDW 16.8 H Plt Count 179 D MPV 8.8 Sodium 137 Potassium 4.2 Chloride 106 Carbon Dioxide 25 Anion Gap 6 L BUN 21.5 H Creatinine 0.8 Est GFR (CKD-EPI)AfAm 116.56 Est GFR (CKD-EPI)NonAf 100.57 Random Glucose 81 Calcium 8.6 Total Bilirubin 1.5 H AST 69 H ALT 49 Alkaline Phosphatase 281 H Ammonia Total Protein 8.3 H Albumin 3.4 Urine Color Urine Appearance Urine pH Ur Specific [place] Urine Protein Urine Glucose (UA) Urine Ketones Urine Blood Urine Nitrite Urine Bilirubin Urine Urobilinogen Ur Leukocyte Esterase Urine WBC (Auto) Urine RBC (Auto) Urine Casts (Auto) U Epithel Cells (Auto) Urine Crystals (Auto) Urine Bacteria (Auto) Phenytoin RPR Titer Nonreactive 11/25/18 11/25/18 11/26/18 08:45 08:45 Unknown WBC RBC Hgb Hct MCV MCH MCHC RDW Plt Count MPV Sodium Potassium Chloride Carbon Dioxide Anion Gap BUN Creatinine Est GFR (CKD-EPI)AfAm Est GFR (CKD-EPI)NonAf Random Glucose Calcium Total Bilirubin AST ALT Alkaline Phosphatase Ammonia 72.10 H Total Protein Albumin Urine Color Dk yellow Urine Appearance Clear Urine pH 5.5 Ur Specific [place] 1.019 Urine Protein Negative Urine Glucose (UA) Negative Urine Ketones Trace H Urine Blood Negative Urine Nitrite Negative Urine Bilirubin 1+ H Urine Urobilinogen 0.2 Ur Leukocyte Esterase 1+ H Urine WBC (Auto) 22 Urine RBC (Auto) 2 Urine Casts (Auto) 16 U Epithel Cells (Auto) 4.6 Urine Crystals (Auto) Ca oxalate Urine Bacteria (Auto) 11.0 Phenytoin 4.7 L RPR Titer 11/29/18 11/30/18 11/30/18 14:40 08:35 08:35 WBC 5.8 RBC 2.94 L Hgb 10.2 L Hct 30.6 L MCV 103.9 H MCH 34.5 H MCHC 33.2 RDW 16.6 H Plt Count 186 MPV 9.1 Sodium 140 Potassium 4.1 Chloride 110 H Carbon Dioxide 24 Anion Gap 6 L BUN 16.3 Creatinine 0.8 Est GFR (CKD-EPI)AfAm 116.56 Est GFR (CKD-EPI)NonAf 100.57 Random Glucose 126 H Calcium 8.4 L Total Bilirubin 0.7 AST 58 H ALT 56 Alkaline Phosphatase 232 H Ammonia Total Protein 7.2 Albumin 3.1 L Urine Color Yellow Urine Appearance Clear Urine pH 6.0 Ur Specific [place] 1.018 Urine Protein Negative Urine Glucose (UA) Negative Urine Ketones Negative Urine Blood Negative Urine Nitrite Negative Urine Bilirubin Negative Urine Urobilinogen 0.2 Ur Leukocyte Esterase Negative Urine WBC (Auto) Urine RBC (Auto) Urine Casts (Auto) U Epithel Cells (Auto) Urine Crystals (Auto) Urine Bacteria (Auto) Phenytoin RPR Titer 11/30/18 11/30/18 12/07/18 08:35 08:35 08:50 WBC RBC Hgb Hct MCV MCH MCHC RDW Plt Count MPV Sodium Potassium Chloride Carbon Dioxide Anion Gap BUN Creatinine Est GFR (CKD-EPI)AfAm Est GFR (CKD-EPI)NonAf Random Glucose Calcium Total Bilirubin AST ALT Alkaline Phosphatase Ammonia 73.20 H 63.90 H Total Protein Albumin Urine Color Urine Appearance Urine pH Ur Specific [place] Urine Protein Urine Glucose (UA) Urine Ketones Urine Blood Urine Nitrite Urine Bilirubin Urine Urobilinogen Ur Leukocyte Esterase Urine WBC (Auto) Urine RBC (Auto) Urine Casts (Auto) U Epithel Cells (Auto) Urine Crystals (Auto) Urine Bacteria (Auto) Phenytoin 3.3 L RPR Titer abnormal labs. Anemia Hyperammonemia Copies of labs given to patient for follow up with primary care provider after discharge. Limited p/e: General: Cardiac: Lungs: Abdomen: Extremities/Skin: - Treatment Discharge Condition: Discharge condition good Hospital Course: Responded well and rehabilitated safely. - Medication Discharge Medications: Ambulatory Orders Phenytoin Na Extended [Dilantin -] 100 mg PO TID 11/16/18 Methadone [Dolophine -] 100 mg PO DAILY 11/17/18 Lactulose (Oral Use) [Cephulac -] 20 gm PO BID #100 udc 11/24/18 Nadolol [Corgard -] 20 mg PO DAILY #30 tablet 11/24/18 Thiamine HCl [B-1] 100 mg PO DAILY 11/24/18 Risperidone [Risperdal -] 1 mg PO BID #60 tablet 12/07/18 - Medication-Assisted Treatment (MAT) Medication-Assisted Treatment (MAT): No - Discharge Instructions Diet, activity, other medical instructions: Diet:Low salt Activity: as tolerated Other medical instructions:follow up with primary care for medical management with Dr. Mendes within 1 -2 weeks after discharge. - Diagnosis (1) Alcohol dependence Current Visit: Yes Status: Chronic Qualifiers: Substance use status: uncomplicated Qualified Code(s): F10.20 - Alcohol dependence, uncomplicated (2) Hyperammonemia Current Visit: Yes Status: Acute (3) Pancytopenia Current Visit: Yes Status: Chronic (4) Seizure disorder Current Visit: Yes Status: Chronic (5) Abnormal liver function test Current Visit: Yes Status: Acute - AMA Did Patient Leave Against Medical Advice: No Additional Comments: Pt to Follow up with CD aftercare referral with [facility] mmtp. pt has refills of his medications in his home pharmacy to filler picker after discharge.
[2018-12-07 14:32] LABS: HEMATOCRIT 30.1 % (35.4-49); MCH 34.6 pg (25.7-33.7); MCHC 33.3 g/dl (32.0-35.9); MEAN CELL VOLUME 103.9 fl (80-96); MEAN PLT VOLUME 10.4 fl (7.5-11.1); PLATELET COUNT 152 K/MM3 (134-434); RBC 2.89 M/mm3 (4.00-5.60); RDW 16.1 % (11.9-15.9); WHITE BLOOD COUNT 6.3 K/mm3 (4.0-10.0)
[2018-12-07 14:48] LABS: ALBUMIN 2.9 g/dl (3.4-5.0); BILIRUBIN,TOTAL 0.6 mg/dL (0.2-1); BLOOD UREA NITROGEN 15.5 mg/dL (7-18); CALCIUM 7.9 mg/dL (8.5-10.1); CREATININE 0.8 mg/dL (0.55-1.3); POTASSIUM 4.5 mmol/L (3.5-5.1); TOT PROT 6.7 g/dl (6.4-8.2)
[2018-12-07] MEDS: THIAMINE HCL 100 MG TABLET (FP) PO SCH (21:17)
[2018-12-07] MEDS ORDERED: SUVOREXANT 20 MG TABLET PO PRN (22:00)
[2018-12-08] MEDS: IBUPROFEN 400 MG TABLET (FP) PO PRN (04:03)
[2018-12-08] MEDS ORDERED: METHADONE HCL 40 MG DISPERSABLE TABLET ONE (04:10)
[2018-12-08] MEDS ORDERED: METHADONE HCL 10 MG TABLET ONE (04:10)
[2018-12-08] MEDS: GABAPENTIN 100 MG CAPSULE (FP) PO SCH (05:52)
[2018-12-08] MEDS: METHADONE 80 MG, METHADONE 20 MG PO SCH (05:52)
[2018-12-08] MEDS: PHENYTOIN NA EXTENDED 100 MG CAPSULE (FP) PO SCH (05:52)
[2018-12-08] MEDS: LACTULOSE 20 GM/30 ML UDC (FOR ORAL USE ONLY) PO SCH (05:53)
[2018-12-08 06:39] VITALS: BP 138/83; PULSE 78; TEMP 98.4
[2018-12-08] MEDS: PRENATAL VITAMINS W/ FOLIC ACID TABLET (FP) PO SCH (09:34)
[2018-12-08] MEDS: NADOLOL 20 MG TABLET (FP) PO SCH (09:35)
[2018-12-08] MEDS: risperiDONE 1 MG TABLET (FP) PO SCH (09:35)
[2018-12-08] MEDS: MINERAL OIL/PETROLAT/WATER TOPICAL CREAM 113 GM JAR TP SCH (09:36)
== END 2018-12-08 09:51 | disposition home or self-care (01) | DRG 772 ==
LOC: YASAS 17:23 → Y5N 18:58
PROVIDERS: ADMIT Neuromusculoskeletal Medicine & OMM; ATTEND Neuromusculoskeletal Medicine & OMM
PROC: HZ42ZZZ Group Counseling for Substance Abuse Treatment, Cognitive-Behavioral (ICD-10-PCS; principal; 2018-11-24)
DX: F10.20 Alcohol dependence, uncomplicated (principal); F10.280 Alcohol dependence with alcohol-induced anxiety disorder; F10.282 Alcohol dependence with alcohol-induced sleep disorder; F11.20 Opioid dependence, uncomplicated; F20.9 Schizophrenia, unspecified; G40.909 Epilepsy, unspecified, not intractable, without status epilepticus; R94.5 Abnormal results of liver function studies; E72.20 Disorder of urea cycle metabolism, unspecified; R30.0 Dysuria; R39.198 Other difficulties with micturition; R10.9 Unspecified abdominal pain; K74.60 Unspecified cirrhosis of liver; K86.9 Disease of pancreas, unspecified; D61.818 Other pancytopenia; D64.9 Anemia, unspecified; J45.909 Unspecified asthma, uncomplicated; Z88.0 Allergy status to penicillin; Z87.891 Personal history of nicotine dependence
CPT/HCPCS: 36415; 80053; 80185; 81003; 82140; 85027; 86593; J2794